=== PATIENT | female | born 1975 | race African-American/Black ===

== ENCOUNTER 2017-11-01 18:05 | Inpatient (IN) ==
[2017-11-01] MEDS ORDERED: CEFEPIME 2,000 MG in SODIUM CHLORIDE 0.9% 100 ML IV STA (18:42)
[2017-11-01] MEDS ORDERED: SODIUM CHLORIDE 0.9% 2,000 ML IV STA (18:42)
[2017-11-01] MEDS ORDERED: VANCOMYCIN INJ 1,000 MG in SODIUM CHLORIDE 0.9% 250 ML IV STA (18:42)
[2017-11-01 19:00] LABS: Basophils % 0.1 % (0.0-0.8); Hematocrit 36.2 VOL% (35.7-47.0); Hemoglobin 11.9 GM/DL (12.0-16.0); Immature Granulocytes % 0.3 %; Immature Granulocytes Absolute 0.03 #; Lymphocytes # 1.7 10*3/uL (1.4-4.0); Lymphocytes % 18.6 % (21.3-54.2); Mean Corpuscular HGB Conc 32.9 GM/DL (32-36); Mean Corpuscular Hemoglobin 27 PG (27-34); Mean Corpuscular Volume 81.5 FL (87-102); Mean Platelet Volume 10.7 FL (9.6-12.0); Monocytes # 0.7 10*3/uL (0.11-0.8); Monocytes % 7.7 % (1.7-12.7); Neutrophils # 6.8 10*3/uL (1.4-7.4); Neutrophils % 73.3 % (38.7-73.9); Platelet Count 273 T/CUMM (130-400); Red Blood Count 4.44 MC/CUMM (3.8-5.5); Red Cell Distribution Width 13.2 % (9.3-17.3); White Blood Count 9.2 T/CUMM (4-12)
[2017-11-01 19:00] LABS: Apearance,Urine CLOUDY (Clear); Bacteria,Urine Moderate /HPF (Few); Bilirubin,Urine Negative (Negative); Blood, Urine Small mg/dL (Negative); Glucose,Urine (UA) 150 mg/dL (Negative); Ketones,Urine 5 mg/dL (Negative); Nitrite,Urine Positive (Negative); Protein,Urine 30 MG/DL; Squamous Epithelial Cell,Urine Occasional /HPF (0-10); Urine Color Yellow (Yellow); Urine Specific Gravity 1.006 (1.001-1.035); Urine Urobilinogen < 2.0 EU/DL (0.2-1.0); WBC,Urine 255 /HPF (0-6)
[2017-11-01] MEDS ORDERED: VANCOMYCIN 1,000 MG VIAL ONE (19:04)
[2017-11-01] MEDS ORDERED: CEFEPIME 1,000 MG VIAL ONE (19:04)
[2017-11-01 19:13] LABS: Lactic Acid 0.9 MMOL/L (0.4-2.0)
[2017-11-01 19:15] LABS: Albumin 3.3 G/DL (3.4-5.0); Bilirubin,Total 0.4 MG/DL (0.2-1.0); Osmolality,Calculated 266.5 MOS/KG (273-304); Potassium 3.5 MMOL/L (3.5-5.1); Total Protein 8.8 G/DL (6.4-8.3)
[2017-11-01] MEDS ORDERED: KETOROLAC 30 MG/1 ML VIAL IV STA (19:41)
[2017-11-01] MEDS ORDERED: ONDANSETRON 4 MG/2 ML VIAL IV PRN (20:33)
[2017-11-01] MEDS ORDERED: BISACODYL 5 MG TABLET PO PRN (20:33)
[2017-11-01] MEDS ORDERED: DEXTROSE 50% 25 GM/50 ML VIAL IV PRN (20:33)
[2017-11-01] MEDS ORDERED: MORPHINE 4 MG/1 ML VIAL IV PRN (20:33)
[2017-11-01] MEDS ORDERED: ZALEPLON 5 MG CAPSULE PO PRN (20:33)
[2017-11-01] MEDS ORDERED: GLUCAGON 1 MG VIAL IM PRN (20:33)
[2017-11-01] MEDS ORDERED: METOPROLOL TARTRATE 5 MG/5 ML VIAL IV PRN (20:44)
[2017-11-01] MEDS ORDERED: GENTAMICIN INJ 60 MG in SODIUM CHLORIDE 0.9% 100 ML IV ONE (21:30)
[2017-11-01] MEDS: SODIUM CHLORIDE 0.9% 1,000 ML IV SCH (22:35)
[2017-11-01] MEDS: ENOXAPARIN 40 MG/0.4 ML SYRINGE SUBCUT SCH (22:36)
[2017-11-01] MEDS: INSULIN GLARGINE 100 UNIT/ML SUBCUT SCH (22:36)
[2017-11-01] MEDS: INSULIN LISPRO 100 UNIT/ML SUBCUT SCH (22:36)
[2017-11-01] MEDS: cefTRIAXone 1,000 MG in SYRINGE 1 EACH IV SCH (23:49)
[2017-11-01] MEDS: ACETAMINOPHEN 325 MG TABLET PO PRN (23:51)
[2017-11-02 06:50] LABS: Basophils % 0.3 % (0.0-0.8); Hematocrit 33.1 VOL% (35.7-47.0); Hemoglobin 11.1 GM/DL (12.0-16.0); Immature Granulocytes % 0.4 %; Immature Granulocytes Absolute 0.03 #; Lymphocytes # 0.9 10*3/uL (1.4-4.0); Lymphocytes % 12.6 % (21.3-54.2); Mean Corpuscular HGB Conc 33.5 GM/DL (32-36); Mean Corpuscular Hemoglobin 27 PG (27-34); Mean Corpuscular Volume 81.3 FL (87-102); Mean Platelet Volume 10.8 FL (9.6-12.0); Monocytes # 0.4 10*3/uL (0.11-0.8); Monocytes % 5.9 % (1.7-12.7); Neutrophils # 5.9 10*3/uL (1.4-7.4); Neutrophils % 80.8 % (38.7-73.9); Platelet Count 263 T/CUMM (130-400); Red Blood Count 4.07 MC/CUMM (3.8-5.5); Red Cell Distribution Width 13.5 % (9.3-17.3); White Blood Count 7.3 T/CUMM (4-12)
[2017-11-02 07:27] LABS: Calcium 8.1 MG/DL (8.5-10.1); Osmolality,Calculated 280.8 MOS/KG (273-304); Thyroid Stimulating Hormone 1.19 uIU/ml (0.358-3.74)
[2017-11-02] MEDS: INSULIN LISPRO 100 UNIT/ML SUBCUT SCH ×4 (08:43→20:06)
[2017-11-02] MEDS: cefTRIAXone 1,000 MG in SYRINGE 1 EACH IV SCH ×4 (08:44→21:24)
[2017-11-02] MEDS: ACETAMINOPHEN 325 MG TABLET PO PRN ×2 (08:48→20:02)
[2017-11-02] MEDS: PANTOPRAZOLE 40 MG TABLET PO SCH (08:50)
[2017-11-02] MEDS ORDERED: NON-FORMULARY MEDICATION (Liraglutide [Victoza 3-Pak] 1.8 MG) SUBCUT SCH (09:00)
[2017-11-02] MEDS: SODIUM CHLORIDE 0.9% 1,000 ML IV SCH ×3 (11:58→20:02)
[2017-11-02] MEDS: ENOXAPARIN 40 MG/0.4 ML SYRINGE SUBCUT SCH (20:04)
[2017-11-02] MEDS: INSULIN GLARGINE 100 UNIT/ML SUBCUT SCH (20:06)
[2017-11-03 07:27] LABS: Basophils % 0.1 % (0.0-0.8); Hematocrit 31.3 VOL% (35.7-47.0); Hemoglobin 10.2 GM/DL (12.0-16.0); Immature Granulocytes % 0.3 %; Immature Granulocytes Absolute 0.02 #; Lymphocytes # 1.4 10*3/uL (1.4-4.0); Lymphocytes % 19.1 % (21.3-54.2); Mean Corpuscular HGB Conc 32.6 GM/DL (32-36); Mean Corpuscular Hemoglobin 27 PG (27-34); Mean Corpuscular Volume 81.5 FL (87-102); Mean Platelet Volume 10.9 FL (9.6-12.0); Monocytes # 0.4 10*3/uL (0.11-0.8); Monocytes % 5.4 % (1.7-12.7); Neutrophils # 5.5 10*3/uL (1.4-7.4); Neutrophils % 75.1 % (38.7-73.9); Platelet Count 234 T/CUMM (130-400); Red Blood Count 3.84 MC/CUMM (3.8-5.5); Red Cell Distribution Width 13.2 % (9.3-17.3); White Blood Count 7.4 T/CUMM (4-12)
[2017-11-03 07:56] LABS: Calcium 8.1 MG/DL (8.5-10.1); Osmolality,Calculated 274.8 MOS/KG (273-304)
[2017-11-03] MEDS: SODIUM CHLORIDE 0.9% 1,000 ML IV SCH ×2 (09:17→16:00)
[2017-11-03] MEDS: PANTOPRAZOLE 40 MG TABLET PO SCH (09:17)
[2017-11-03] MEDS: INSULIN LISPRO 100 UNIT/ML SUBCUT SCH ×5 (09:17→20:28)
[2017-11-03] MEDS: cefTRIAXone 1,000 MG in SYRINGE 1 EACH IV SCH ×3 (09:17→20:59)
[2017-11-03] MEDS: ACETAMINOPHEN 325 MG TABLET PO PRN ×2 (17:40→17:57)
[2017-11-03] MEDS: INSULIN GLARGINE 100 UNIT/ML SUBCUT SCH ×2 (19:52→20:28)
[2017-11-03] MEDS: ENOXAPARIN 40 MG/0.4 ML SYRINGE SUBCUT SCH (20:59)
[2017-11-04] MEDS: ACETAMINOPHEN 325 MG TABLET PO PRN ×2 (02:35→11:56)
[2017-11-04 05:31] LABS: Basophils % 0.5 % (0.0-0.8); Eosinophils % 0.6 % (0.00-10.9); Hematocrit 29.6 VOL% (35.7-47.0); Immature Granulocytes % 0.3 %; Immature Granulocytes Absolute 0.02 #; Lymphocytes # 1.4 10*3/uL (1.4-4.0); Mean Corpuscular HGB Conc 33.8 GM/DL (32-36); Mean Corpuscular Hemoglobin 27 PG (27-34); Mean Corpuscular Volume 79.4 FL (87-102); Mean Platelet Volume 11.2 FL (9.6-12.0); Monocytes # 0.6 10*3/uL (0.11-0.8); Monocytes % 9.8 % (1.7-12.7); Neutrophils # 4.1 10*3/uL (1.4-7.4); Neutrophils % 65.8 % (38.7-73.9); Platelet Count 254 T/CUMM (130-400); Red Blood Count 3.73 MC/CUMM (3.8-5.5); Red Cell Distribution Width 13.5 % (9.3-17.3); White Blood Count 6.3 T/CUMM (4-12)
[2017-11-04 05:57] LABS: Osmolality,Calculated 283.1 MOS/KG (273-304); Potassium 3.7 MMOL/L (3.5-5.1)
[2017-11-04 06:04] LABS: Microcytosis 1+; Platelet Estimate Normal
[2017-11-04] MEDS: SODIUM CHLORIDE 0.9% 1,000 ML IV SCH (06:22)
[2017-11-04] MEDS: PANTOPRAZOLE 40 MG TABLET PO SCH (10:55)
[2017-11-04] MEDS: cefTRIAXone 1,000 MG in SYRINGE 1 EACH IV SCH (10:55)
[2017-11-04] MEDS: INSULIN LISPRO 100 UNIT/ML SUBCUT SCH ×2 (10:56→13:01)
[2017-11-04 13:30] VITALS: BP 149/89
== END 2017-11-04 14:00 | disposition home or self-care (01) | DRG 690 ==
LOC: N.ED 18:05 → SUATTDRO 20:33 → N.EDINP 20:33 → N.5E 21:22
PROVIDERS: ADMIT Hospitalist; ATTEND Internal Medicine